=== PATIENT | male | born 1945 | race Two or more races ===

== ENCOUNTER 2019-01-17 15:11 | Inpatient (IN) | payer MEDICARE, OTHER ==
[~2019-01-17] VITALS: Ht 170.2 cm; Wt 72.6 kg
[~2019-01-17 15:11] MED LIST: [UNRECOGNIZED DRUG - REMARK] PO
[2019-01-17] MEDS ORDERED: IV NORMAL SALINE 1000 ML BAG IV ONE (15:30)
--- NOTE | 2019-01-17 15:33 | NUR ---
PATIENT PLACED ON A MONITOR. HE IS COUGHING AND WHEEZING. RT CALLED...
[2019-01-17] MEDS ORDERED: IPRATROPIUM BROMIDE 0.5 MG/2.5 ML NEBU ONE ×2 (15:43→17:21)
[2019-01-17] MEDS ORDERED: ALBUTEROL SULFATE 2.5 MG/3 ML NEBU ONE ×2 (15:43→17:21)
[2019-01-17] MEDS ORDERED: ALBUTEROL SULFATE 2.5 MG/3 ML NEBU NEB ONE ×2 (15:45→17:15)
[2019-01-17] MEDS ORDERED: IPRATROPIUM BROMIDE 0.5 MG/2.5 ML NEBU NEB ONE ×2 (15:45→17:15)
[2019-01-17 15:46] LABS: BASOPHILS # (AUTO) 0.1 K/uL (0.0-8.0); BASOPHILS % (AUTO) 0.9 % (0.0-2.0); EOSINOPHILS % (AUTO) 0.3 % (0.0-7.0); HEMATOCRIT 39.9 % (36.7-47.1); HEMOGLOBIN 13.4 g/dL (12.5-16.3); LYMPHOCYTES # (AUTO) 1.7 K/uL (20.0-40.0); LYMPHOCYTES % (AUTO) 12.5 % (20.5-51.5); MEAN CORPUSCULAR HEMOGLOBIN 28.9 uug (23.8-33.4); MEAN CORPUSCULAR HGB CONC 34 g/dL (32.5-36.3); MEAN CORPUSCULAR VOLUME 86.3 fL (73.0-96.2); MONOCYTES # (AUTO) 1.1 K/uL (2.0-10.0); MONOCYTES % (AUTO) 7.9 % (0.0-11.0); NEUTROPHILS # (AUTO) 10.5 K/uL (1.8-8.9); NEUTROPHILS % (AUTO) 78.4 % (38.5-71.5); PLATELET COUNT (AUTO) 302 K/uL (152-348); RED BLOOD CELL COUNT(AUTO) 4.63 MIL/uL (4.06-5.63); WHITE BLOOD COUNT (AUTO) 13.5 K/uL (3.6-10.2)
[2019-01-17 15:57] LABS: CARBON DIOXIDE 23 mmol/L (21-32); CHLORIDE 100 mmol/L (98-107); GLUCOSE 124 mg/dL (74-106); POTASSIUM 4.5 mmol/L (3.5-5.1); UREA NITROGEN, BLOOD 18 mg/dL (7-18)
[2019-01-17 16:10] LABS: ALANINE AMINOTRANSFERASE 29 U/L (16-63); ALKALINE PHOSPHATASE 80 U/L (50-136); ASPARTATE AMINOTRANSFERASE 20 U/L (15-37); BILIRUBIN,DIRECT 0.2 mg/dL (0.0-0.2); BILIRUBIN,TOTAL 0.5 mg/dL (0.2-1.0); TOTAL PROTEIN, SERUM 8.4 g/dL (6.4-8.2)
[2019-01-17] MEDS ORDERED: LEVOFLOXACIN 750 MG/D5W 150 ML PIGGYBACK IV ONE (16:45)
[2019-01-17] MEDS ORDERED: VANCOMYCIN IV 1,000 MG in IV DEXTROSE 5% 250 ML IV ONE (16:45)
[2019-01-17] MEDS ORDERED: methylPREDNISolone SOD SUCC 125 MG/2 ML VIAL IV ONE (17:15)
[2019-01-17] MEDS ORDERED: methylPREDNISolone SOD SUCC 125 MG/2 ML VIAL ONE (17:44)
[2019-01-17] MEDS ORDERED: VANCOMYCIN IV 200 ML ONE (17:44)
[2019-01-17] MEDS ORDERED: ACETAMINOPHEN 325 MG TABLET PO PRN (18:15)
[2019-01-17] MEDS ORDERED: ALBUTEROL SULFATE 2.5 MG/ 0.5 ML NEBU NEB PRN (18:15)
[2019-01-17] MEDS ORDERED: MAGNESIUM HYDROXIDE 30 ML LIQUID UDC PO PRN (18:15)
[2019-01-17] MEDS ORDERED: methylPREDNISolone SOD SUCC 40 MG/ML VIAL IV ONE (18:15)
[2019-01-17] MEDS ORDERED: ONDANSETRON 4 MG/2 ML VIAL IV PRN (18:15)
[2019-01-17] MEDS ORDERED: HYDROCODONE/APAP 5-325MG TABLET PO PRN (18:15)
[2019-01-17] MEDS ORDERED: TEMAZEPAM 15 MG CAPSULE PO PRN (18:15)
[2019-01-17] MEDS ORDERED: HYDROMORPHONE 1 MG/1 ML DISP.SYRIN IV PRN (18:15)
[2019-01-17] MEDS ORDERED: IPRATROPIUM BROMIDE 0.5 MG/2.5 ML NEBU NEB PRN (18:15)
[2019-01-17] MEDS ORDERED: Z GUARD REMEDY PASTE 57 GM TUBE TOP PRN (18:15)
--- NOTE | 2019-01-17 18:15 | NUR ---
Pt placed on BiPap with settings: RR 16, IPAP 12, EPAP 6, FiO2 30%, tolerating well at this time, will continue to monitor..
[2019-01-17 18:32] LABS: MAGNESIUM 2.2 mg/dL (1.8-2.4); PHOSPHOROUS 3.3 mg/dL (2.5-4.9)
[2019-01-17 18:38] LABS: ABG BASE EXCESS -3.7 mmol/L; ABG HCO3 19.7 mmol/L; ABG PO2 64.3 mmHg (75.0-100.0); ABG SITE LEFT RADIAL; ABG TOTAL HEMOGLOBIN 13.6 G/dL (13.5-18.0); COHb 1.3 % (0.5-1.5); MetHb 0.4 % (0.0-1.5); O2Hb 91.3 % (94.0-97.0); VENT MODE BIPAP
--- NOTE | 2019-01-17 18:38 | NUR ---
FiO2 raised to 45% post ABG, and RN Trinity aware..
--- NOTE | 2019-01-17 18:47 | NUR ---
PATIENT IS ON BIPAP NOW FOR WORSENING BREATHING/SOB. PATIENT ACCIDNTLY PULED HIS IV OUT AND A NEW ONE WAS PLACED ON SAME HAND AWAY FROM PRIOR IV. RUO RESTARTED...
[2019-01-17] MEDS ORDERED: LEVOFLOXACIN 750MG/D5W 150 ML IV ONE (18:58)
[2019-01-17] MEDS ORDERED: MORPHINE SULFATE 2 MG/1 ML DISP.SYRIN IV ONE (19:30)
[2019-01-17] MEDS ORDERED: MORPHINE SULFATE 2 MG/1 ML DISP.SYRIN ONE (19:36)
--- NOTE | 2019-01-17 20:18 | NUR ---
Pt. admitted to CCU, under care of Cayden Delgadillo NP. Diagnosis: Respiratory Failure Belongs List completed Report given to CCU nurse.
--- NOTE | 2019-01-17 20:33 | NUR ---
PT TRANSPORTED TO CCU BED 3 ON 4LPM VIA N/C. SPO2 93% NO SOB NOTED PT AWAKE/ALERT. BIPAP AT PT BEDSIDE. WILL CONT TO MONITOR.
--- NOTE | 2019-01-17 20:37 | NUR ---
Clinical pharmacy note-Vancomycin dosing per pharmacy Subjective: To start Vancomycin dosing on this patient for HCAP/possible early sepsis Objective: BUN 18 Scr 1.0 WBC 13.5 Temp 100.4 Assessment/Plan: Patient had Vancomycin 1 gram in ER today at 1645. Will continue Vancomycin 1 gram IV every 15 hrs(second dose tomorrow at 0700) and draw trough by 4th dose(not ordered yet) for expected trough around 15. Will monitor daily.
--- NOTE | 2019-01-17 20:50 | NUR ---
Received patient in CCU bed 3. PT on O2 at 4lpm via NC. Patient taken off BiPAP. made aware. Noted to have bruise on forehead from BIPAP. Picture taken and placed in chart. Pt awake alert orient and able to follow directions. Belongings list reviewed with patient. Patient refused to give up wallet and valuable belongings to be placed in a safe. IV site placed on right hand 20g. Full body assessment done. Pt oriented to unit, call light system and given urinal. Bed in low and locked position. Call light in reach. Continue to monitor
[2019-01-17 21:00] VITALS: BP 122/81
[2019-01-17] MEDS: CEFEPIME HCL 1 G in IV DEXTROSE 5% 50 ML IV SCH (21:21)
[2019-01-17] MEDS: IV NS 1000 ML 1,000 ML IV PRN (21:21)
[2019-01-17] MEDS: ENOXAPARIN SODIUM 40 MG/0.4 ML DISP.SYRIN SQ SCH (21:22)
[2019-01-17 22:00] VITALS: BP 139/81
--- NOTE | 2019-01-17 22:00 | NUR ---
Pt noted to have money in [employer] totaling 101 dollars. Pt requested to hold on to money and and not have it placed in chart.
[2019-01-17 23:00] VITALS: BP 132/82
[2019-01-18] VITALS (13 sets, daily range): BP systolic 110–147; BP diastolic 59–89
[2019-01-18] MEDS: methylPREDNISolone SOD SUCC 40 MG/ML VIAL IV SCH ×3 (00:10→21:15)
[2019-01-18 05:03] LABS: BASOPHILS # (AUTO) 0.1 K/uL (0.0-8.0); BASOPHILS % (AUTO) 0.4 % (0.0-2.0); HEMATOCRIT 36.7 % (36.7-47.1); HEMOGLOBIN 12.3 g/dL (12.5-16.3); LYMPHOCYTES # (AUTO) 0.7 K/uL (20.0-40.0); LYMPHOCYTES % (AUTO) 5.8 % (20.5-51.5); MEAN CORPUSCULAR HEMOGLOBIN 29.4 uug (23.8-33.4); MEAN CORPUSCULAR HGB CONC 34 g/dL (32.5-36.3); MEAN CORPUSCULAR VOLUME 87.7 fL (73.0-96.2); MONOCYTES # (AUTO) 0.2 K/uL (2.0-10.0); MONOCYTES % (AUTO) 1.6 % (0.0-11.0); NEUTROPHILS # (AUTO) 11.5 K/uL (1.8-8.9); NEUTROPHILS % (AUTO) 92.2 % (38.5-71.5); PLATELET COUNT (AUTO) 289 K/uL (152-348); RED BLOOD CELL COUNT(AUTO) 4.19 MIL/uL (4.06-5.63); WHITE BLOOD COUNT (AUTO) 12.4 K/uL (3.6-10.2)
[2019-01-18 05:35] LABS: THYROID STIMULATING HORMONE 1.017 mIU/mL (0.358-3.740)
[2019-01-18 05:56] LABS: ALANINE AMINOTRANSFERASE 30 U/L (16-63); ALKALINE PHOSPHATASE 66 U/L (50-136); ASPARTATE AMINOTRANSFERASE 20 U/L (15-37); BILIRUBIN,TOTAL 0.4 mg/dL (0.2-1.0); CARBON DIOXIDE 21 mmol/L (21-32); CHLORIDE 105 mmol/L (98-107); CHOLESTEROL 105 mg/dL (<200); CREATININE 1.1 mg/dL (0.6-1.3); GLUCOSE 200 mg/dL (74-106); HDL CHOLESTEROL 30 mg/dL (40-60); POTASSIUM 4.4 mmol/L (3.5-5.1); TOTAL PROTEIN, SERUM 7.5 g/dL (6.4-8.2); TRIGLYCERIDES 94 MG/DL (30-150); UREA NITROGEN, BLOOD 16 mg/dL (7-18)
--- NOTE | 2019-01-18 07:15 | NUR ---
Cayden LEATHER ROLLER IN THE UNIT TO SEE PATIENT. ONCE PULMONARY CLEARS PATIENT CAN DOWNGRADE PATIENT TO TELE.
[2019-01-18] MEDS: VANCOMYCIN IV 1 G in PREMIXED 0 EACH IV SCH ×2 (08:15→23:01)
[2019-01-18] MEDS: PANTOPRAZOLE SODIUM 40 MG VIAL IV SCH (08:19)
[2019-01-18] MEDS ORDERED: LEVOFLOXACIN 750 MG/D5W 150 ML PIGGYBACK IV SCH (09:00)
--- NOTE | 2019-01-18 09:00 | NUR ---
DOCTOR PAINTING IN THE UNIT TO SEE PATIENT FOR NEW PULMONARY CONSULTATION. PATIENT IS OK FOR DOWNGRADE FROM HIS STAND POINT AND NEW ORDERS WERE PLACED IN SYSTEM.
[2019-01-18] MEDS: CEFEPIME HCL 1 G in IV DEXTROSE 5% 50 ML IV SCH ×2 (09:48→21:12)
--- NOTE | 2019-01-18 10:36 | NUR ---
SPOKE TO RADHA VALE CHARGE FOR BED TRANSFER AND ROOM. PATIENT WILL BE GOING TO ROOM 317 AND YIN IS ACCEPTING NURSE.
[2019-01-18] MEDS ORDERED: CLOP75TA15 PO (11:11)
[2019-01-18] MEDS: IPRATROPIUM BROMIDE 0.5 MG/2.5 ML NEBU NEB SCH ×3 (11:12→19:53)
[2019-01-18] MEDS: ALBUTEROL SULFATE 2.5 MG/3 ML NEBU NEB SCH ×3 (11:13→19:53)
[2019-01-18] MEDS ORDERED: DEXT15DR6 EACHEYE (11:37)
[2019-01-18] MEDS ORDERED: NA P133E RC (11:37)
[2019-01-18] MEDS ORDERED: OMEG1CAP18 PO (11:37)
[2019-01-18] MEDS ORDERED: DIVA125C2 PO (11:37)
[2019-01-18] MEDS ORDERED: MAG355OR18 PO (11:37)
[2019-01-18] MEDS ORDERED: DOCU-141 PO (11:37)
[2019-01-18] MEDS ORDERED: CYCL30DR EACHEYE (11:37)
[2019-01-18] MEDS ORDERED: AMLO5TAB4 PO (11:37)
[2019-01-18] MEDS ORDERED: MAGN400O6 PO (11:37)
[2019-01-18] MEDS ORDERED: ACET-2154 PO (11:37)
--- NOTE | 2019-01-18 11:46 | NUR ---
PATIENT HAD PT EVAL AT THIS TIME WAS ABLE TO WALK WITH WALKER. GENERALIZED WEAKNESS WILL BE BACK FOR MORE THERAPY TOMORROW AND WILL NEED TO WALK WITH PORTABLE O2.
--- NOTE | 2019-01-18 12:18 | NUR ---
Clinical pharmacy note-Vancomycin dosing per pharmacy Subjective: To continue Vancomycin dosing on this patient for HCAP/possible early sepsis Objective: BUN 16 Scr 1.1 WBC 12.4 Temp 98.6 Assessment/Plan: Will continue Vancomycin 1 gram IV every 15 hrs(second dose today at 0700). Trough due tomorrow at 1230, will check level when available and adjust as needed. Will follow Addendum: 01/19/19 at 1343 by JUANJOSE BOYKIN 01/19 BUN 21 SCR 0.9 WBC 16.2 VANCOMYCIN TROUGH 10.6. CHANGE VANCOMYCIN TO 1GM IVPB Q12H. ESTIMATE TROUGH 15
[2019-01-18] MEDS: IV NS 1000 ML 1,000 ML IV PRN (14:16)
[2019-01-18] MEDS: DIVALPROEX SPRINKLE 125 MG CAP.SPRINK PO SCH (17:23)
--- NOTE | 2019-01-18 18:30 | NUR ---
PATIENT HAS STAYED IN UNIT TELE PATIENT AT THIS TIME. NO BED AVAILABLE ON MEDICAL FLOOR.
[2019-01-18] MEDS: LEVOFLOXACIN 750MG/D5W 750 MG in PREMIXED 1 EACH IV SCH (20:39)
[2019-01-18] MEDS: CULTURELLE CAPSULE PO SCH (21:15)
[2019-01-18] MEDS: ENOXAPARIN SODIUM 40 MG/0.4 ML DISP.SYRIN SQ SCH (21:16)
[2019-01-19] VITALS (7 sets, daily range): BP systolic 111–156; BP diastolic 47–85
[2019-01-19 04:57] LABS: BASOPHILS # (AUTO) 0.2 K/uL (0.0-8.0); BASOPHILS % (AUTO) 1.3 % (0.0-2.0); HEMOGLOBIN 12.3 g/dL (12.5-16.3); LYMPHOCYTES # (AUTO) 0.9 K/uL (20.0-40.0); LYMPHOCYTES % (AUTO) 5.3 % (20.5-51.5); MEAN CORPUSCULAR HEMOGLOBIN 29.1 uug (23.8-33.4); MEAN CORPUSCULAR HGB CONC 33 g/dL (32.5-36.3); MEAN CORPUSCULAR VOLUME 87.7 fL (73.0-96.2); MONOCYTES # (AUTO) 0.6 K/uL (2.0-10.0); MONOCYTES % (AUTO) 3.9 % (0.0-11.0); NEUTROPHILS # (AUTO) 14.5 K/uL (1.8-8.9); NEUTROPHILS % (AUTO) 89.5 % (38.5-71.5); PLATELET COUNT (AUTO) 333 K/uL (152-348); RED BLOOD CELL COUNT(AUTO) 4.22 MIL/uL (4.06-5.63); WHITE BLOOD COUNT (AUTO) 16.2 K/uL (3.6-10.2)
[2019-01-19 05:25] LABS: CARBON DIOXIDE 24 mmol/L (21-32); CHLORIDE 107 mmol/L (98-107); CREATININE 0.9 mg/dL (0.6-1.3); GLUCOSE 143 mg/dL (74-106); MAGNESIUM 2.4 mg/dL (1.8-2.4); PHOSPHOROUS 2.7 mg/dL (2.5-4.9); POTASSIUM 4.5 mmol/L (3.5-5.1); UREA NITROGEN, BLOOD 21 mg/dL (7-18)
[2019-01-19] MEDS: IV NS 1000 ML 1,000 ML IV PRN ×2 (05:32→15:54)
[2019-01-19] MEDS: IPRATROPIUM BROMIDE 0.5 MG/2.5 ML NEBU NEB SCH ×4 (07:07→19:39)
[2019-01-19] MEDS: ALBUTEROL SULFATE 2.5 MG/3 ML NEBU NEB SCH ×4 (07:07→19:39)
--- NOTE | 2019-01-19 08:00 | NUR ---
VONDA ROUNDING ON PATIENT THIS MORNING. PATIENT IS TELE STATUS ALREADY.
[2019-01-19 08:29] LABS: ABG BASE EXCESS -2.9 mmol/L; ABG HCO3 21.5 mmol/L; ABG PH 7.393 (7.350-7.450); ABG PO2 66.4 mmHg (75.0-100.0); ABG SITE RIGHT RADIAL; ABG TOTAL HEMOGLOBIN 12.9 G/dL (13.5-18.0); COHb 1.1 % (0.5-1.5); MetHb 0.4 % (0.0-1.5); O2Hb 92.6 % (94.0-97.0)
[2019-01-19] MEDS: PANTOPRAZOLE SODIUM 40 MG VIAL IV SCH (09:48)
[2019-01-19] MEDS: CEFEPIME HCL 1 G in IV DEXTROSE 5% 50 ML IV SCH ×2 (09:48→21:00)
[2019-01-19] MEDS: CULTURELLE CAPSULE PO SCH ×2 (09:48→20:38)
[2019-01-19] MEDS: CLOPIDOGREL 75 MG TABLET PO SCH (09:48)
[2019-01-19] MEDS: methylPREDNISolone SOD SUCC 40 MG/ML VIAL IV SCH ×2 (09:48→20:38)
[2019-01-19] MEDS: DIVALPROEX SPRINKLE 125 MG CAP.SPRINK PO SCH ×2 (09:48→18:18)
[2019-01-19] MEDS: AMLODIPINE 5 MG TABLET PO SCH (09:49)
--- NOTE | 2019-01-19 10:30 | NUR ---
DOCTOR PAINTING IN THE UNIT TO SEE PATIENT. REMAINS STABLE.
--- NOTE | 2019-01-19 13:18 | NUR ---
REPORT GIVEN TO FINANCIAL INVESTMENT MANAGER. PATIENT WILL BE GOING FOR VIDEO SWALLOW AND WILL BE TAKEN BACK TO NEW ROOM. PATIENT WILL BE GOING TO ROOM 311.
--- NOTE | 2019-01-19 13:40 | NUR ---
PT IN THE UNIT TO WORK WITH PATIENT.
--- NOTE | 2019-01-19 13:43 | NUR ---
Clinical pharmacy note-Vancomycin dosing per pharmacy Subjective: To continue Vancomycin dosing on this patient for HCAP/possible early sepsis Objective: BUN 21 Scr 0.9 WBC 16.2 Temp 98.6 vancomycin trough 10.6 Assessment/Plan: change vancomycin to 1gm ivpb q12h estimated trough 15 Addendum: 01/19/19 at 1343 by JUANJOSE OLIVEIRA ADM 01/19 BUN 21 SCR 0.9 WBC 16.2 VANCOMYCIN TROUGH 10.6. CHANGE VANCOMYCIN TO 1GM IVPB Q12H. ESTIMATE TROUGH 15
--- NOTE | 2019-01-19 14:27 | NUR ---
PATIENT WAS PICKED UP BY FOOD SERVICE COUNTER CLERK AND WILL BE GOING TO ROOM 311 POST VIDEO SWALLOW SCREENING. PATIENT TAKEN ON 4L NC VIA WHEELCHAIR.
[2019-01-19 14:58] LABS: *BILIRUBIN,URIN NEGATIVE (NEGATIVE); *BLOOD, URINE NEGATIVE (NEGATIVE); *CLARITY,URINE CLEAR (CLEAR); *COLOR,URINE YELLOW (YELLOW); *KETONES,URINE NEGATIVE (NEGATIVE); *UROBILINOGEN,URINE 0.2 E.U./dl (NORMAL); LEUKOCYTE ESTERASE ,URINE NEGATIVE (NEGATIVE); NITRITE, URINE NEGATIVE (NEGATIVE); PH,URINE 5.5 (5.0-8.0); UGLUCOSE NEGATIVE (NEGATIVE)
[2019-01-19 15:30] LABS: MUCUS,URINE FEW /LPF (0-FEW); SQUAMOUS EPITHELIAL CELL,UR FEW /HPF (NONE SEEN); WBC,URINE NONE SEEN /HPF (0-3)
[2019-01-19] MEDS: VANCOMYCIN IV 1 G in PREMIXED 0 EACH IV SCH ×2 (15:47→16:01)
[2019-01-19] MEDS ORDERED: BARIUM SULFATE 240 ML ORAL.SUSP PO ONE (17:05)
[2019-01-19] MEDS ORDERED: BARIUM SULFATE 148 GM SUSP.RECON PO ONE (17:05)
--- NOTE | 2019-01-19 20:00 | NUR ---
Received patient laying comfortably in bed. No acute distress noted. A/O x 2 but forgetful. Patient is on O2 2L NC. IV on the right hand, patent and intact. Patient is TELE SR @ 94. Skin intact. Patient is ambulatory with assists. Noted left sided weakness. Bed alarm on. Bed in low and locked position. Safety initiated. Call light within reach. Will closely monitor.
[2019-01-19] MEDS: ENOXAPARIN SODIUM 40 MG/0.4 ML DISP.SYRIN SQ SCH (20:39)
[2019-01-19] MEDS: LEVOFLOXACIN 750MG/D5W 750 MG in PREMIXED 1 EACH IV SCH (20:39)
[2019-01-20 00:36] VITALS: BP 118/80
[2019-01-20 04:45] VITALS: BP 139/70
--- NOTE | 2019-01-20 06:00 | NUR ---
Patient slept intermittently shift. No acute distress noted. Noted persistent productive cough. Vital signs stable. TELE SR at 90. IV leaking on the right hand. Attempted to re-insert twice, unsuccessful. On O2 2L NC. All meds given as ordered. All needs met.
[2019-01-20 06:06] LABS: HEMATOCRIT 34.9 % (36.7-47.1); HEMOGLOBIN 11.8 g/dL (12.5-16.3); LYMPHOCYTES # (AUTO) 0.8 K/uL (20.0-40.0); LYMPHOCYTES % (AUTO) 7.4 % (20.5-51.5); MEAN CORPUSCULAR HEMOGLOBIN 30.6 uug (23.8-33.4); MEAN CORPUSCULAR HGB CONC 34 g/dL (32.5-36.3); MEAN CORPUSCULAR VOLUME 90.8 fL (73.0-96.2); MONOCYTES # (AUTO) 0.4 K/uL (2.0-10.0); MONOCYTES % (AUTO) 3.4 % (0.0-11.0); NEUTROPHILS # (AUTO) 10.1 K/uL (1.8-8.9); NEUTROPHILS % (AUTO) 89.2 % (38.5-71.5); PLATELET COUNT (AUTO) 341 K/uL (152-348); RED BLOOD CELL COUNT(AUTO) 3.85 MIL/uL (4.06-5.63); WHITE BLOOD COUNT (AUTO) 11.3 K/uL (3.6-10.2)
[2019-01-20] MEDS: PANTOPRAZOLE SODIUM 40 MG TABLET.DR PO SCH (06:06)
[2019-01-20 06:23] LABS: CARBON DIOXIDE 23 mmol/L (21-32); CHLORIDE 105 mmol/L (98-107); GLUCOSE 139 mg/dL (74-106); POTASSIUM 4.2 mmol/L (3.5-5.1); UREA NITROGEN, BLOOD 18 mg/dL (7-18)
[2019-01-20] MEDS: IPRATROPIUM BROMIDE 0.5 MG/2.5 ML NEBU NEB SCH ×4 (07:54→19:07)
[2019-01-20] MEDS: ALBUTEROL SULFATE 2.5 MG/3 ML NEBU NEB SCH ×4 (07:54→19:07)
[2019-01-20] MEDS: CULTURELLE CAPSULE PO SCH ×2 (09:42→20:46)
[2019-01-20] MEDS: methylPREDNISolone SOD SUCC 40 MG/ML VIAL IV SCH ×2 (09:42→20:46)
[2019-01-20] MEDS: DIVALPROEX SPRINKLE 125 MG CAP.SPRINK PO SCH ×2 (09:43→17:41)
[2019-01-20] MEDS: CLOPIDOGREL 75 MG TABLET PO SCH (09:43)
[2019-01-20] MEDS: AMLODIPINE 5 MG TABLET PO SCH (09:49)
[2019-01-20] MEDS: CEFEPIME HCL 1 G in IV DEXTROSE 5% 50 ML IV SCH ×2 (09:55→20:45)
[2019-01-20 11:16] VITALS: BP 123/72
[2019-01-20] MEDS: VANCOMYCIN IV 1 G in PREMIXED 0 EACH IV SCH (14:30)
[2019-01-20 15:26] VITALS: BP 120/70
--- NOTE | 2019-01-20 15:31 | NUR ---
Clinical pharmacy note-Vancomycin dosing per pharmacy Subjective: To continue Vancomycin dosing on this patient for HCAP/possible early sepsis Objective: BUN 18 Scr 1.0 WBC 11.3 Temp 98.8 trough pending tomorrow early am at 0130 Assessment/Plan: Will continue vancomycin 1gm ivpb q12h estimated trough 15, next trough due tomorrow early am at 0130. RN endorsed to hold dose if >20. Will check level in am and adjust as needed. Will follow
[2019-01-20 20:00] VITALS: BP 115/54
--- NOTE | 2019-01-20 20:00 | NUR ---
Received patient laying comfortably in bed. No acute distress noted. A/O x 2 but forgetful. Patient is on O2 2L NC. IV on the right FA, patent and intact. IVF infusing. Patient is TELE SR @ 100. Skin intact. Patient is ambulatory with assists. Noted left sided weakness. Bed alarm on. Bed in low and locked position. Safety initiated. Call light within reach. Will closely monitor.
[2019-01-20] MEDS: IV NS 1000 ML 1,000 ML IV PRN (20:45)
[2019-01-20] MEDS: ENOXAPARIN SODIUM 40 MG/0.4 ML DISP.SYRIN SQ SCH (20:49)
[2019-01-20] MEDS ORDERED: GUAIFENESIN/DEXTROMETHORPHAN 5 ML UDC PO PRN (21:45)
[2019-01-21 00:41] VITALS: BP 142/89
[2019-01-21 04:38] VITALS: BP 153/85
--- NOTE | 2019-01-21 05:38 | NUR ---
Patient slept intermittently shift. No acute distress noted. Noted persistent productive cough. Vital signs stable. TELE SR at 79. IV on the right FA, patent and intact. IVF infusing. On O2 2L NC. Good urine output. Safety and comfort measures maintained t/o shift. All meds given as ordered. All needs met.
[2019-01-21] MEDS: PANTOPRAZOLE SODIUM 40 MG TABLET.DR PO SCH (06:30)
[2019-01-21] MEDS: AMLODIPINE 5 MG TABLET PO SCH (06:34)
--- NOTE | 2019-01-21 06:46 | NUR ---
Patient BP was elevated 161/81 HR 73 TELE SR. 0900 BP medication given early. CHAI charge nurse Leanna. Will continue to monitor.
[2019-01-21 07:02] LABS: BASOPHILS % (AUTO) 0.1 % (0.0-2.0); HEMATOCRIT 38.4 % (36.7-47.1); LYMPHOCYTES # (AUTO) 1.1 K/uL (20.0-40.0); LYMPHOCYTES % (AUTO) 9.6 % (20.5-51.5); MEAN CORPUSCULAR HGB CONC 34 g/dL (32.5-36.3); MEAN CORPUSCULAR VOLUME 88.5 fL (73.0-96.2); MONOCYTES # (AUTO) 0.6 K/uL (2.0-10.0); MONOCYTES % (AUTO) 5.5 % (0.0-11.0); NEUTROPHILS # (AUTO) 9.5 K/uL (1.8-8.9); NEUTROPHILS % (AUTO) 84.8 % (38.5-71.5); PLATELET COUNT (AUTO) 383 K/uL (152-348); RED BLOOD CELL COUNT(AUTO) 4.34 MIL/uL (4.06-5.63); WHITE BLOOD COUNT (AUTO) 11.2 K/uL (3.6-10.2)
[2019-01-21] MEDS: ALBUTEROL SULFATE 2.5 MG/3 ML NEBU NEB SCH ×3 (07:03→14:58)
[2019-01-21] MEDS: IPRATROPIUM BROMIDE 0.5 MG/2.5 ML NEBU NEB SCH ×3 (07:04→14:58)
--- NOTE | 2019-01-21 07:10 | NUR ---
PATIENT IN BED, AWAKE, AOX2, FORGETFUL AT TIMES. DENIES CHEST PAIN OR SOB. NO ACUTE DISTRESS. ALL NEEDS MET AT THIS TIME. IV TO RT. FA WITH NS AT 75CC/HR, INTACT. SAFETY PRECAUTIONS IN PLACE. CALL LIGHT IN REACH. WILL CONTINUE TO MONITOR PT.
[2019-01-21 07:20] LABS: CARBON DIOXIDE 26 mmol/L (21-32); CHLORIDE 102 mmol/L (98-107); CREATININE 0.9 mg/dL (0.6-1.3); GLUCOSE 165 mg/dL (74-106); POTASSIUM 4.3 mmol/L (3.5-5.1); UREA NITROGEN, BLOOD 20 mg/dL (7-18)
[2019-01-21 08:08] LABS: BAND % (MANUAL) 4 % (0-10); LYMPHOCYTES % (MANUAL) 12 % (20-40); METAMYELOCYTES % 1 % (0-1); MONOCYTES % (MANUAL) 9 % (2-10); NEUTROPHILS % (MANUAL) 74 % (42-75)
[2019-01-21 09:00] VITALS: BP 147/83
[2019-01-21] MEDS: CEFEPIME HCL 1 G in IV DEXTROSE 5% 50 ML IV SCH (09:05)
[2019-01-21] MEDS: CLOPIDOGREL 75 MG TABLET PO SCH (09:05)
[2019-01-21] MEDS: methylPREDNISolone SOD SUCC 40 MG/ML VIAL IV SCH (09:05)
[2019-01-21] MEDS: DIVALPROEX SPRINKLE 125 MG CAP.SPRINK PO SCH (09:05)
[2019-01-21] MEDS: CULTURELLE CAPSULE PO SCH (09:05)
[2019-01-21] MEDS ORDERED: CEFT1VIA15 IV (10:17)
[2019-01-21] MEDS ORDERED: METH4TAB3 PO (10:17)
[2019-01-21 11:25] VITALS: BP 137/72
--- NOTE | 2019-01-21 15:45 | NUR ---
PATIENT DISCHARGED TO SNF. DISCHARGE INSTRUCTIONS AND MEDICATIONS WENT OVER WITH PATIENT AND SIGNED BY THE PATIENT. PATIENT DENIES PAIN OR DISCOMFORT. VS STABLE UPON DISCHARGE. RT. FA IV IN PLACE DUE TO PATIENT CONTINUING ON ANTIBIOTICS IV. BELONGINGS LIST SIGNED AND WENT OVER WITH PATIENT. PATIENT LEFT VIA AMBULANCE ACCOMPANIED BY EMT'S. HE LEFT WITH O2 AT 2L NC AND IS SATURATING AT 98%.
== END 2019-01-21 15:40 | DRG 871 ==
LOC: ER 15:15 → CCU 20:24 → TELE3 01-19 14:42
PROVIDERS: ADMIT Nurse Practitioner Acute Care; ATTEND Nurse Practitioner Acute Care
PROC: 5A09357 Assistance with Respiratory Ventilation, Less than 24 Consecutive Hours, Continuous Positive Airway Pressure (ICD-10-PCS; principal; 2019-01-17)
DX: A41.9 Sepsis, unspecified organism (principal); J18.9 Pneumonia, unspecified organism; J96.01 Acute respiratory failure with hypoxia; J96.02 Acute respiratory failure with hypercapnia; I69.354 Hemiplegia and hemiparesis following cerebral infarction affecting left non-dominant side; F03.91 Unspecified dementia, unspecified severity, with behavioral disturbance; E87.1 Hypo-osmolality and hyponatremia; E44.1 Mild protein-calorie malnutrition; J98.11 Atelectasis; R65.20 Severe sepsis without septic shock; Z87.891 Personal history of nicotine dependence; Z88.0 Allergy status to penicillin; E11.65 Type 2 diabetes mellitus with hyperglycemia; E78.5 Hyperlipidemia, unspecified; D64.9 Anemia, unspecified; R13.10 Dysphagia, unspecified; I10 Essential (primary) hypertension; I70.0 Atherosclerosis of aorta; F41.9 Anxiety disorder, unspecified; M62.81 Muscle weakness (generalized); J98.01 Acute bronchospasm
CPT/HCPCS: 36415; 36600; 70030-TC; 71045; 74230; 82785; 83605; 83735; 84100; 84443; 85025; 85730; 87040; 87070; 87086; 87400; 92526; 92611; 93005; 94640; 97110; 97116; 97530; A4663; C9113; G0378; J0692; J1170; J1650; J1956; J2270; J2920; J2930; J3370; J3590; J7030; J7060

== ENCOUNTER 2021-03-08 14:40 | Inpatient (IN) | payer MEDICARE, OTHER ==
[~2021-03-08] VITALS: Ht 167.6 cm; Wt 63.5 kg
[~2021-03-08 14:40] MED LIST changes: +ACET-2154 PO; +AMLO5TAB4 PO; +CEFT1VIA15 IV; +CLOP75TA15 PO; +CYCL30DR EACHEYE; +DEXT15DR6 EACHEYE; +DIVA125C2 PO; +DOCU-141 PO; +MAG355OR18 PO; +MAGN400O6 PO; +METH4TAB3 PO; +NA P133E RC; +OMEG1CAP18 PO; -[UNRECOGNIZED DRUG - REMARK] PO
[2021-03-08 15:36] LABS: BASOPHILS # (AUTO) 0.1 K/uL (0.0-8.0); BASOPHILS % (AUTO) 0.5 % (0.0-2.0); EOSINOPHILS # (AUTO) 0.1 K/uL (0.0-0.7); EOSINOPHILS % (AUTO) 1.1 % (0.0-7.0); LYMPHOCYTES # (AUTO) 1.1 K/uL (20.0-40.0); LYMPHOCYTES % (AUTO) 10.3 % (20.5-51.5); MEAN CORPUSCULAR HGB CONC 34 g/dL (32.5-36.3); MEAN CORPUSCULAR VOLUME 89.1 fL (73.0-96.2); MONOCYTES # (AUTO) 0.7 K/uL (2.0-10.0); NEUTROPHILS # (AUTO) 8.5 K/uL (1.8-8.9); NEUTROPHILS % (AUTO) 81.1 % (38.5-71.5); PLATELET COUNT (AUTO) 483 K/uL (152-348); WHITE BLOOD COUNT (AUTO) 10.4 K/uL (3.6-10.2)
[2021-03-08] MEDS ORDERED: OXYM30MI NS (15:40)
[2021-03-08] MEDS ORDERED: CLOP75TA33 PO (15:40)
[2021-03-08] MEDS ORDERED: TAMS-3 PO (15:40)
[2021-03-08] MEDS ORDERED: ISOS40TA16 PO (15:40)
[2021-03-08] MEDS: PANTOPRAZOLE SODIUM IV 80 MG in IV DEXTROSE 5% 100 ML IV ONE ×2 (15:40→16:10)
[2021-03-08] MEDS ORDERED: FINA5TAB3 PO (15:40)
[2021-03-08 15:41] LABS: CARBON DIOXIDE 21 mmol/L (21-32); CHLORIDE 106 mmol/L (98-107); GLUCOSE 125 mg/dL (74-106); POTASSIUM 4.7 mmol/L (3.5-5.1); UREA NITROGEN, BLOOD 41 mg/dL (7-18)
[2021-03-08 15:43] LABS: RED BLOOD CELL COUNT(AUTO) 2.04 MIL/uL (4.06-5.63)
[2021-03-08 15:45] LABS: HEMATOCRIT 18.2 % (36.7-47.1); HEMOGLOBIN 6.1 g/dL (12.5-16.3)
[2021-03-08 15:46] LABS: ALANINE AMINOTRANSFERASE 149 U/L (16-63); ALKALINE PHOSPHATASE 103 U/L (50-136); ASPARTATE AMINOTRANSFERASE 101 U/L (15-37); BILIRUBIN,DIRECT 0.1 mg/dL (0.0-0.2); BILIRUBIN,TOTAL 0.2 mg/dL (0.2-1.0); TOTAL PROTEIN, SERUM 6.7 g/dL (6.4-8.2)
[2021-03-08 16:06] LABS: *OCCULT BLOOD STOOL NEGATIVE (NEGATIVE)
[2021-03-08] MEDS ORDERED: PANTOPRAZOLE SODIUM 40 MG VIAL ONE (16:16)
[2021-03-08 17:10] LABS: *BILIRUBIN,URIN NEGATIVE (NEGATIVE); *BLOOD, URINE 3+ (NEGATIVE); *COLOR,URINE YELLOW (YELLOW); *KETONES,URINE NEGATIVE (NEGATIVE); *UROBILINOGEN,URINE 0.2 E.U./dl (NORMAL); LEUKOCYTE ESTERASE ,URINE NEGATIVE (NEGATIVE); NITRITE, URINE NEGATIVE (NEGATIVE); UGLUCOSE NEGATIVE (NEGATIVE)
[2021-03-08 17:23] LABS: *CLARITY,URINE CLOUDY (CLEAR); RBC,URINE TNTC /HPF (0-3)
[2021-03-08 17:24] LABS: BACTERIA,URINE FEW /HPF (NONE SEEN); SQUAMOUS EPITHELIAL CELL,UR FEW /HPF (NONE SEEN)
[2021-03-08 17:34] LABS: LYMPHOCYTES % (MANUAL) 11 % (20-40); MONOCYTES % (MANUAL) 5 % (2-10); NEUTROPHILS % (MANUAL) 84 % (42-75)
[2021-03-08] MEDS ORDERED: INSULIN REGULAR, HUMAN 300 UNIT/3 ML VIAL SQ PRN (17:45)
[2021-03-08] MEDS ORDERED: ACETAMINOPHEN 325 MG TABLET PO PRN (17:45)
[2021-03-08] MEDS ORDERED: ONDANSETRON 4 MG/2 ML VIAL IV PRN (17:45)
[2021-03-08] MEDS ORDERED: HYDROCODONE/APAP 5-325MG TABLET PO PRN (17:45)
[2021-03-08] MEDS ORDERED: DEXTROSE 50% 50 ML DISP.SYRIN IV PRN (17:45)
--- NOTE | 2021-03-08 19:09 | NUR ---
Received hand-off report from KAVIN Espinoza. Will continue to monitor patient's blood transfusion.
--- NOTE | 2021-03-08 19:09 | NUR ---
Per KAVIN Espinoza, hospitalist ATUL Ruiz has connected with MD Leija prior to my arrival and have exchanged reports.
--- NOTE | 2021-03-08 19:14 | NUR ---
Called for a room on 3rd floor, KAVIN Holcomb states she will call back with a room once it's assigned.
--- NOTE | 2021-03-08 19:16 | NUR ---
3rd floor called back. Patient will be assigned to telemetry room 306 assigned to KAVIN Marie.
--- NOTE | 2021-03-08 19:30 | NUR ---
Blood transfusion concluded, no adverse reactions were noted for the patient.
--- NOTE | 2021-03-08 19:59 | NUR ---
Called to give report to 3rd floor about patient, KAVIN Clemens states she the nurse for the patient will call back.
--- NOTE | 2021-03-08 20:06 | NUR ---
Report given to KAVIN Marie, patient will be taken upstairs soon.
--- NOTE | 2021-03-08 20:20 | NUR ---
Pt. admitted to telemetry unit 306, under care of ATUL Wright. Belongs List completed
[2021-03-08 20:30] VITALS: BP 150/80
--- NOTE | 2021-03-08 20:30 | NUR ---
Received pt from ER via zev. Under the care of Kyle POLLARD. Dx: Anemia and Acute Kidney Injury. Pt in no acute distress. Belonging list done. Admission process and care plan initiated. senior care assessment done. Safety and comfort provided. Skin issues noted and put on chart. Will continue to monitor.
[2021-03-08] MEDS: IV NS 1000 ML 1,000 ML IV PRN (21:03)
[2021-03-08] MEDS ORDERED: POLYVINYL ALCOHOL OPHT DROPS 15 ML BOTTLE EACHEYE PRN (21:30)
[2021-03-08] MEDS: BLOOD SUGAR DIAGNOSTIC 1 EACH STRIP VI SCH (21:46)
[2021-03-08] MEDS: DIVALPROEX SPRINKLE 125 MG CAP.SPRINK PO SCH (21:53)
[2021-03-08] MEDS: ISOSORBIDE DINITRATE 20 MG TABLET PO SCH (23:02)
[2021-03-08 23:09] LABS: BASOPHILS # (AUTO) 0.1 K/uL (0.0-8.0); BASOPHILS % (AUTO) 0.7 % (0.0-2.0); EOSINOPHILS # (AUTO) 0.1 K/uL (0.0-0.7); EOSINOPHILS % (AUTO) 1.1 % (0.0-7.0); HEMATOCRIT 23.7 % (36.7-47.1); HEMOGLOBIN 7.9 g/dL (12.5-16.3); LYMPHOCYTES # (AUTO) 1.2 K/uL (20.0-40.0); MEAN CORPUSCULAR HEMOGLOBIN 29.3 uug (23.8-33.4); MEAN CORPUSCULAR HGB CONC 33 g/dL (32.5-36.3); MEAN CORPUSCULAR VOLUME 87.7 fL (73.0-96.2); MONOCYTES # (AUTO) 0.7 K/uL (2.0-10.0); MONOCYTES % (AUTO) 7.2 % (0.0-11.0); NEUTROPHILS # (AUTO) 7.8 K/uL (1.8-8.9); PLATELET COUNT (AUTO) 465 K/uL (152-348); WHITE BLOOD COUNT (AUTO) 9.9 K/uL (3.6-10.2)
[2021-03-08 23:17] VITALS: BP 150/80
[2021-03-09 00:24] VITALS: BP 130/77
[2021-03-09 04:23] VITALS: BP 147/84
[2021-03-09] MEDS: ISOSORBIDE DINITRATE 20 MG TABLET PO SCH ×3 (06:00→21:03)
[2021-03-09] MEDS: BLOOD SUGAR DIAGNOSTIC 1 EACH STRIP VI SCH ×4 (06:33→20:50)
--- NOTE | 2021-03-09 06:39 | NUR ---
Pt slept intermittently. Prescribed medication given and pt tolerated it well. Pt in no acute distress.Pt vital signs within normal limit. Pt can make his needs known. All needs are met. Safety and comfort provided. Will endorse to incoming nurse for continuity of care.
[2021-03-09 06:41] LABS: BASOPHILS # (AUTO) 0.1 K/uL (0.0-8.0); BASOPHILS % (AUTO) 0.8 % (0.0-2.0); EOSINOPHILS # (AUTO) 0.2 K/uL (0.0-0.7); EOSINOPHILS % (AUTO) 1.8 % (0.0-7.0); HEMATOCRIT 21.9 % (36.7-47.1); LYMPHOCYTES # (AUTO) 1.3 K/uL (20.0-40.0); MEAN CORPUSCULAR HEMOGLOBIN 29.1 uug (23.8-33.4); MEAN CORPUSCULAR HGB CONC 33 g/dL (32.5-36.3); MEAN CORPUSCULAR VOLUME 88.3 fL (73.0-96.2); MONOCYTES # (AUTO) 0.6 K/uL (2.0-10.0); NEUTROPHILS # (AUTO) 6.4 K/uL (1.8-8.9); NEUTROPHILS % (AUTO) 75.4 % (38.5-71.5); PLATELET COUNT (AUTO) 443 K/uL (152-348); WHITE BLOOD COUNT (AUTO) 8.5 K/uL (3.6-10.2)
[2021-03-09 07:07] LABS: ALANINE AMINOTRANSFERASE 112 U/L (16-63); ALKALINE PHOSPHATASE 90 U/L (50-136); ASPARTATE AMINOTRANSFERASE 73 U/L (15-37); BILIRUBIN,DIRECT 0.6 mg/dL (0.0-0.2); BILIRUBIN,TOTAL 0.3 mg/dL (0.2-1.0); CARBON DIOXIDE 24 mmol/L (21-32); CHLORIDE 108 mmol/L (98-107); CHOLESTEROL 88 mg/dL (<200); GLUCOSE 83 mg/dL (74-106); HDL CHOLESTEROL 20 mg/dL (40-60); MAGNESIUM 1.5 mg/dL (1.8-2.4); PHOSPHOROUS 5.3 mg/dL (2.5-4.9); POTASSIUM 4.6 mmol/L (3.5-5.1); TOTAL PROTEIN, SERUM 6.2 g/dL (6.4-8.2); TRIGLYCERIDES 111 MG/DL (30-150)
--- NOTE | 2021-03-09 07:15 | NUR ---
RECEIVED PATIENT IN BED AWAKE ALERT TO SELF IS FORGETFUL ON ROOM AIR WITH NO SHORTNESS OF BREATH AT THIS TIME REMAIN ON IVF OF NS AT 75 ML/HR ORDERED WITH NO S/S OF INFILTERATION ON SITE CALL LIGHTS AND PERSONAL BELONGINGS ARE WITHIN EASY REACH AT THIS TIME BED ALARM IS IN USE FOR SAFETY MADE COMFORTABLE AND WILL CONTINUE TO OBSERVE.
[2021-03-09 07:17] LABS: UREA NITROGEN, BLOOD 38 mg/dL (7-18)
[2021-03-09 07:28] LABS: RED BLOOD CELL COUNT(AUTO) 2.48 MIL/uL (4.06-5.63)
[2021-03-09 07:31] LABS: HEMOGLOBIN 7.2 g/dL (12.5-16.3)
--- NOTE | 2021-03-09 07:33 | NUR ---
RECEIVED CRITICAL RESULTS FROM LAB HEMOGLOBIN IS 7.2 AND AL[address]UMIN IS 1.4 DR LEES NOTIFIED WITH NO NEW ORDERS AT THIS TIME.
--- NOTE | 2021-03-09 07:46 | NUR ---
DR ESCALANTE HERE AND SEEN PATIENT WITH NEW ORDERS AND NOTED
[2021-03-09] MEDS: DOCUSATE SODIUM 100 MG CAPSULE PO SCH (08:07)
[2021-03-09] MEDS: AMLODIPINE 5 MG TABLET PO SCH (08:08)
[2021-03-09] MEDS: DIVALPROEX SPRINKLE 125 MG CAP.SPRINK PO SCH ×2 (08:08→16:35)
[2021-03-09] MEDS: FINASTERIDE 5 MG TABLET PO SCH (08:08)
[2021-03-09] MEDS ORDERED: TAMSULOSIN HCL 0.4 MG CAP.SR.24H PO SCH ×2 (09:00→21:00)
--- NOTE | 2021-03-09 09:13 | NUR ---
QUINTON DE LUNA DNP HERE TO SEE AND EXAMINE PATIENT AWARE OF H/H AND MAGNESSIUM LEVEL WITH NO NEW ORDERS AT THIS TIME.
[2021-03-09] MEDS: PANTOPRAZOLE SODIUM 40 MG VIAL IV SCH ×2 (09:39→20:47)
[2021-03-09] MEDS: IV NS 1000 ML 1,000 ML IV PRN (10:08)
[2021-03-09] MEDS ORDERED: MAGNESIUM OXIDE 400 MG TABLET PO ONE (10:15)
--- NOTE | 2021-03-09 11:02 | NUR ---
MAG LEVEL IS 1.5 WITH NEW REPLACEMENT ORDER FROM QUINTON DE LUNA DNP AND NOTED
[2021-03-09 11:43] VITALS: BP 139/85
[2021-03-09 13:14] LABS: *BILIRUBIN,URIN NEGATIVE (NEGATIVE); *BLOOD, URINE 3+ (NEGATIVE); *CLARITY,URINE CLEAR (CLEAR); *COLOR,URINE YELLOW (YELLOW); *KETONES,URINE NEGATIVE (NEGATIVE); *UROBILINOGEN,URINE 0.2 E.U./dl (NORMAL); LEUKOCYTE ESTERASE ,URINE NEGATIVE (NEGATIVE); NITRITE, URINE NEGATIVE (NEGATIVE); UGLUCOSE NEGATIVE (NEGATIVE)
[2021-03-09 13:32] LABS: *CREATININE,URINE 21.9 mg/dL (30-125); *URINE TOTAL PROTEIN RANDOM 176.2 mg/dL (<150/24HR)
[2021-03-09 15:47] VITALS: BP 120/84
[2021-03-09 16:05] LABS: BACTERIA,URINE NONE SEEN /HPF (NONE SEEN); RBC,URINE 20-50 /HPF (0-3); SQUAMOUS EPITHELIAL CELL,UR FEW /HPF (NONE SEEN)
--- NOTE | 2021-03-09 16:07 | NUR ---
PATIENT PULLED OUT HIS HEP LOCK HE IS CONFUSED DISORIENTED AND UNABLE TO RELATE WHY HE PULLED OUT THE LINE ATTEMPTED TO REINSERT UNABLE AT THIS TIME HIS PROVIDER NOTIFIED WITH ORDER FOR MID LINE NOTIFIED NICHOLAS ZONE MAINTENANCE TECHNICIAN AND SHE CALLED BACK AND STATED THAT THE SOONEST SOMEONE CAN COME TO INSERT IS 2100 WILL KEEP TRYING TO SEE IF I CAN INSERT EVEN THE SMALLEST NEEDLE MEANWHILE TO CONTINUE HIS IVF.
[2021-03-09 16:34] LABS: HEMATOCRIT 23.3 % (36.7-47.1); HEMOGLOBIN 7.9 g/dL (12.5-16.3)
--- NOTE | 2021-03-09 16:49 | NUR ---
I WAS FINALLY ABLE TO INSERT HEPLOCK GAUGE 20 TO HIS RIGHT ANTECUBITAL WRAPPED WITH KIRLIX AND CONTINUED IVF ORDERED MORGUE TECHNICIAN NOTIFIED TO HOLD OFF ON THE MIDLINE FOR NOW WE HAVE A WORKING LINE AT THE MOMENT
--- NOTE | 2021-03-09 18:00 | NUR ---
IN BED RESTING CONFUSED AND DISORIENTED ASSISTED NEEDED REMAIN ON IVF VIA RIGHT ANTECUBITAL WRAPPED WITH KIRLIX PATIENT EDUCATED ON THE NEED FOR THE HEPLOCK TO DO NOT REMOVE HE HAS EXPRESSED UNDERSTANDING BUT HAS POOR MEMORY WILL CONTINUE TO OBSERVE.
--- NOTE | 2021-03-09 19:30 | NUR ---
Received patient lying in bed. AAOx2-3. In no acute distress. Denies any pain or SOB. NSR on tele at 96/min. IV site on left wrist and right AC intact and patent. IVF infusing to right AC. Safety measure initiated and call jain within reached.
[2021-03-09 20:06] VITALS: BP 146/85
[2021-03-09] MEDS: Z GUARD REMEDY PASTE 57 GM TUBE TOP SCH (20:47)
[2021-03-10 00:03] VITALS: BP 153/80
[2021-03-10] MEDS: IV NS 1000 ML 1,000 ML IV PRN (01:29)
--- NOTE | 2021-03-10 04:00 | NUR ---
Noted right wrist IV site pulled out. No bleeding noted on site. IV site on right AC remains intact and patent. IVF infusing.
[2021-03-10 04:06] VITALS: BP_SYST 146; BP_SYST 154; BP_DIAS 77; BP_DIAS 85
[2021-03-10] MEDS: ISOSORBIDE DINITRATE 20 MG TABLET PO SCH ×2 (06:12→13:16)
[2021-03-10 06:23] LABS: BASOPHILS % (AUTO) 0.6 % (0.0-2.0); EOSINOPHILS # (AUTO) 0.1 K/uL (0.0-0.7); EOSINOPHILS % (AUTO) 1.3 % (0.0-7.0); HEMATOCRIT 25.2 % (36.7-47.1); HEMOGLOBIN 8.5 g/dL (12.5-16.3); LYMPHOCYTES # (AUTO) 0.9 K/uL (20.0-40.0); LYMPHOCYTES % (AUTO) 10.3 % (20.5-51.5); MEAN CORPUSCULAR HEMOGLOBIN 29.7 uug (23.8-33.4); MEAN CORPUSCULAR HGB CONC 34 g/dL (32.5-36.3); MEAN CORPUSCULAR VOLUME 87.8 fL (73.0-96.2); MONOCYTES # (AUTO) 0.5 K/uL (2.0-10.0); MONOCYTES % (AUTO) 5.4 % (0.0-11.0); NEUTROPHILS # (AUTO) 7.1 K/uL (1.8-8.9); NEUTROPHILS % (AUTO) 82.4 % (38.5-71.5); PLATELET COUNT (AUTO) 562 K/uL (152-348); RED BLOOD CELL COUNT(AUTO) 2.87 MIL/uL (4.06-5.63); WHITE BLOOD COUNT (AUTO) 8.7 K/uL (3.6-10.2)
[2021-03-10] MEDS: BLOOD SUGAR DIAGNOSTIC 1 EACH STRIP VI SCH ×3 (06:44→16:30)
--- NOTE | 2021-03-10 06:45 | NUR ---
AAOx2-3. In no acute distress. Denies any pain or SOB. SR, sinus tachy on tele bet. 96-103/min. IV site on right AC intact and patent. IVF infusing. Safety measure maintained and call jain within reached.
[2021-03-10 06:51] LABS: IRON, SERUM 23 ug/dL (50-175)
[2021-03-10 07:29] LABS: ALANINE AMINOTRANSFERASE 94 U/L (16-63); ALKALINE PHOSPHATASE 95 U/L (50-136); ASPARTATE AMINOTRANSFERASE 47 U/L (15-37); BILIRUBIN,TOTAL 0.4 mg/dL (0.2-1.0); CARBON DIOXIDE 24 mmol/L (21-32); CHLORIDE 110 mmol/L (98-107); CREATININE 2.8 mg/dL (0.6-1.3); FERRITIN 1324 ng/mL (26-388); GLUCOSE 88 mg/dL (74-106); MAGNESIUM 1.7 mg/dL (1.8-2.4); PHOSPHOROUS 5.4 mg/dL (2.5-4.9); POTASSIUM 4.3 mmol/L (3.5-5.1); TOTAL PROTEIN, SERUM 7.2 g/dL (6.4-8.2); UREA NITROGEN, BLOOD 33 mg/dL (7-18)
[2021-03-10 08:17] LABS: CREATINE KINASE, TOTAL 25 U/L (39-308)
--- NOTE | 2021-03-10 08:45 | NUR ---
RECEIVED PATIENT ON FIRST STEP ANA AWAKE ALERT AWARE BUT WITH DISORIENTATION AT THIS TIME PATIENT IS INCONTINENT OF URINE WILL ASK FOR A URINAL ONLY TO FIND OUT THAT HE IS WET ALREADY CHEKO CARE DONE KEPT CLEAN AND DRY REMAIN ON IVF ORDERED WITH NO S/S OF INFILTERATION AT THIS TIME TURNED AND REPOSITIONED Q2H CALL LIGHTS AND PERSONAL BELONGINGS ARE WITHIN EASY REACH WILL CONTINUE TO OBSERVE.
[2021-03-10] MEDS: PANTOPRAZOLE SODIUM 40 MG VIAL IV SCH (09:09)
[2021-03-10] MEDS: DIVALPROEX SPRINKLE 125 MG CAP.SPRINK PO SCH ×2 (09:09→16:21)
[2021-03-10] MEDS: DOCUSATE SODIUM 100 MG CAPSULE PO SCH (09:09)
[2021-03-10] MEDS: FINASTERIDE 5 MG TABLET PO SCH (09:09)
[2021-03-10] MEDS: AMLODIPINE 5 MG TABLET PO SCH (09:09)
[2021-03-10] MEDS: Z GUARD REMEDY PASTE 57 GM TUBE TOP SCH (09:13)
--- NOTE | 2021-03-10 11:36 | NUR ---
PATIENT SEEN AND EXAMINED BY FINA SUN WITH NEW ORDERS AND NOTED.
[2021-03-10 11:50] VITALS: BP 157/87
[2021-03-10] MEDS ORDERED: PANT40TA2 PO (14:22)
[2021-03-10] MEDS ORDERED: SIMV-49 PO (14:41)
[2021-03-10 15:57] VITALS: BP 155/86
--- NOTE | 2021-03-10 16:00 | NUR ---
CALLED [facility] SPOKE WITH ROSARIO VALE AND REPORT GIVEN TO HER FOR CONTINUING CARE PATIENT IS SCHEDULED TO BE PICKED UP AT 1700
--- NOTE | 2021-03-10 18:26 | NUR ---
AWAITING FOR AMBULANCE CABLE CUTTER AND SWAGER SCHEDULED FOR 1829
[2021-03-11 08:06] LABS: *IMMUNOGLOBULIN G, SERUM 1988 mg/dL (603-1613); IMMUNOGLOBULIN A, SERUM 454 mg/dL (61-437); IMMUNOGLOBULIN M, SERUM 76 mg/dL (15-143)
[2021-03-11 08:06] LABS: COMPLEMENT, C3 SERUM 183 mg/dL (82-167); COMPLEMENT, C4 SERUM 41 mg/dL (12-38)
[2021-03-11 10:06] LABS: *ANTI-SCLERODERMA-70 AB <0.2 AI (0.0-0.9); *SJOGREN'S ANTI-SS-A <0.2 AI (0.0-0.9); *SJOGREN'S ANTI-SS-B <0.2 AI (0.0-0.9); *SMITH ANTIBODIES 0.3 AI (0.0-0.9); ANTI-DNA(DS) AB, QN <1 IU/mL (0-9)
[2021-03-11 11:06] LABS: HEPATITIS B SURFACE AB Non Reactive (.); HEPATITIS B SURFACE AG Negative (Negative)
[2021-03-12 12:06] LABS: A/G RATIO 0.4 (0.7-1.7); ALBUMIN 1.8 g/dL (2.9-4.4); ALPHA-1-GLOBULIN 0.5 g/dL (0.0-0.4); BETA GLOBULIN 1.2 g/dL (0.7-1.3); GAMMA GLOBULIN 1.9 g/dL (0.4-1.8); GLOBULIN, TOTAL 4.6 g/dL (2.2-3.9); M-SPIKE Not Observed g/dL (Not Observed)
== END 2021-03-10 19:16 | DRG 291 ==
LOC: ER 14:40 → TELE3 20:17
PROVIDERS: ADMIT Nurse Practitioner Acute Care; ATTEND Registered Nurse
PROC: 30233N1 Transfusion of Nonautologous Red Blood Cells into Peripheral Vein, Percutaneous Approach (ICD-10-PCS; principal; 2021-03-08)
DX: I13.0 Hypertensive heart and chronic kidney disease with heart failure and stage 1 through stage 4 chronic kidney disease, or unspecified chronic kidney disease (principal); N17.0 Acute kidney failure with tubular necrosis; E43 Unspecified severe protein-calorie malnutrition; F03.91 Unspecified dementia, unspecified severity, with behavioral disturbance; G82.20 Paraplegia, unspecified; I69.354 Hemiplegia and hemiparesis following cerebral infarction affecting left non-dominant side; R31.9 Hematuria, unspecified; Z20.822 Contact with and (suspected) exposure to COVID-19; E11.22 Type 2 diabetes mellitus with diabetic chronic kidney disease; D63.1 Anemia in chronic kidney disease; E78.5 Hyperlipidemia, unspecified; E83.51 Hypocalcemia; F41.9 Anxiety disorder, unspecified; I50.9 Heart failure, unspecified; R31.29 Other microscopic hematuria; N18.9 Chronic kidney disease, unspecified; Z88.0 Allergy status to penicillin; R74.01 Elevation of levels of liver transaminase levels; N40.0 Benign prostatic hyperplasia without lower urinary tract symptoms; M62.81 Muscle weakness (generalized); F29 Unspecified psychosis not due to a substance or known physiological condition; E88.09 Other disorders of plasma-protein metabolism, not elsewhere classified; Z68.22 Body mass index [BMI] 22.0-22.9, adult; Z79.84 Long term (current) use of oral hypoglycemic drugs; R13.10 Dysphagia, unspecified; D47.3 Essential (hemorrhagic) thrombocythemia; K80.20 Calculus of gallbladder without cholecystitis without obstruction
CPT/HCPCS: 36415; 70030-TC; 71045; 82784; 83550; 83690; 83735; 83970; 84100; 84153; 84155; 84156; 84165; 84300; 85018; 85025; 85651; 85730; 86038; 86160; 86334; 86706; 86803; 86850; 86900; 86901; 86920; 87086; 87340; 93005; A4663; C9113; G0378; J1815; J7030; J7050; J7060; P9016-BL; P9021